=== PATIENT | female | born 2000 ===

== ENCOUNTER 2025-01-29 15:06 | Outpatient (CLI) | payer BC, SELFPAY ==
[2025-01-29 13:02] LABS: HCG Quant, Pregnancy 17580 mIU/mL (1-3)
== END 2025-01-29 15:07 | disposition home or self-care (01) ==
LOC: LBO 15:06
PROVIDERS: Visit Provider Advanced Practice Midwife
DX: Z34.91 Encounter for supervision of normal pregnancy, unspecified, first trimester (principal); N92.0 Excessive and frequent menstruation with regular cycle
CPT/HCPCS: 36415; 84702

== ENCOUNTER 2025-03-10 01:43 | Outpatient (CLI) | payer BC, SELFPAY ==
[2025-03-10 14:44] LABS: Abs Immature Grans 0.01 10^3/uL (0.0-0.06); HCT 34.4 % (36.0-46.0); HGB 11.7 g/dL (11.2-15.7); Immature Grans % 0.2 %; MCH 28.7 pg (27.0-33.0); MCHC 34.0 % (32.0-36.0); MCV 84 fL (80-95); MPV 10.3 fL (8.0-11.0); Platelet Count 265 10^3/uL (130-400); RBC 4.08 10^6/uL (3.93-5.22); RDW 13.7 % (11.7-14.6); RDW-SD 42.2 fL; WBC 5.14 10^3/uL (4.4-10.8)
[2025-03-10 15:37] LABS: Hemoglobin A1C 5.3 % (<5.7)
[2025-03-11 09:36] LABS: Hepatitis C Ab w Rflx HCV PCR Negative (Negative)
[2025-03-11 09:52] LABS: HIV-1/2 Ag & Ab Screen Negative (Negative)
[2025-03-11 10:09] LABS: Rubella IgG Ab (UVM) Positive (See Note)
[2025-03-12 21:22] LABS: Syphilis IgG w/Reflex Nonreactive (Nonreactive)
== END 2025-03-10 01:44 | disposition home or self-care (01) ==
LOC: LBO 01:43
PROVIDERS: Visit Provider Advanced Practice Midwife
DX: Z34.91 Encounter for supervision of normal pregnancy, unspecified, first trimester (principal); Z68.39 Body mass index [BMI] 39.0-39.9, adult
CPT/HCPCS: 36415; 86787; 86803; 87340; 87389; 83036; 85025; 86762; 86780

== ENCOUNTER 2025-03-10 13:11 | Outpatient (REF) | payer BC, SELFPAY ==
[2025-03-10 17:12] LABS: Cannabinoids THC Positive (Negative); METHADONE URINE SCREEN Negative (Negative)
[2025-03-11 12:51] LABS: Fentanyl Scr w/Rfx Confirm Negative ng/mL (<1)
[2025-03-11 13:19] LABS: Chlamydia Result Negative (Negative); GC Result Negative (Negative)
== END 2025-03-10 13:12 | disposition home or self-care (01) ==
LOC: LBN 13:11
PROVIDERS: Visit Provider Advanced Practice Midwife
DX: Z34.91 Encounter for supervision of normal pregnancy, unspecified, first trimester (principal)
CPT/HCPCS: 80307; 80348; 87491; 87591; 87086

== ENCOUNTER 2025-04-07 10:49 | Outpatient (CLI) | payer BC, SELFPAY | END 2025-04-07 10:50 | disposition home or self-care (01) | LOC: LBO 05-04 10:49 | PROVIDERS: Visit Provider Advanced Practice Midwife | DX: Z34.91 Encounter for supervision of normal pregnancy, unspecified, first trimester (principal) | CPT/HCPCS: 36415; 86850; 86900; 86901 ==